=== PATIENT | female | born 1945 | race Caucasian/White ===

== ENCOUNTER 2017-01-05 07:21 | Day surgery (SDC) | payer MEDICARE, OTHER ==
[~2017-01-05] VITALS: Ht 162.6 cm; Wt 88.5 kg
--- NOTE | ~2017-01-05 | EGD ---
EGD REPORT [facility] [address] [address] NAME: ROSE MARIE DOWNS : [birth year] STATUS : REG [facility] PAT#: [id number] AGE: 71 ADM/REG DATE : 01/05/17 MR#: [id number] REPORT SERV DATE: 01/05/17 DICTATED BY: CIERRA TALBERT III DATE: 01/05/17 REPORT STATUS : Draft TRANSCRIBED BY: [facility] DATE: 01/05/17 Endoscopy Center Patient Name: Rose Marie Downs Date of : 1945 Attending MD: CIERRA TALBERT III, MD Procedure Date No Time: 01/05/2017 Procedure: Upper GI endoscopy Indications: Dysphagia, Heartburn Referring MD: JOHN ANTONY MD Medicines: Propofol per Anesthesia Complications: No immediate complications. Procedure: After obtaining informed consent, the endoscope was passed under direct vision. Throughout the procedure, the patient's blood pressure, pulse, and oxygen saturations were monitored continuously. The GIF H190 [id number] was introduced through the mouth, and advanced to the third part of duodenum. The upper GI endoscopy was accomplished with ease. The patient tolerated the procedure well. Findings: Localized mild erythema was found at the gastroesophageal junction. Biopsies were taken with a cold forceps for histology. A mild Schatzki ring (acquired) was found at the gastroesophageal junction. A guidewire was placed and the scope was withdrawn. Dilation was performed with a Savary dilator with no resistance at 54 Fr. A small hiatus hernia was present. The examined duodenum was normal. Diffuse mildly erythematous mucosa without bleeding was found in the entire examined stomach. Biopsies were taken with a cold forceps for histology. Impression: - Erythema at the gastroesophageal junction. Biopsied. - Mild Schatzki ring. Dilated. - Hiatus hernia. - Normal examined duodenum. - Erythematous mucosa in the stomach. Biopsied. Recommendation: - Patient has a contact number available for emergencies. The signs and symptoms of potential delayed complications were discussed with the patient. Return to normal activities tomorrow. Written discharge instructions were provided to the patient. - Discharge patient to home. - Return to previous diet. EGD REPORT [address] [address] NAME: ROSE MARIE DOWNS : [birth year] STATUS : REG [facility] PAT#: [id number] AGE: 71 ADM/REG DATE : 01/05/17 MR#: [id number] REPORT SERV DATE: 01/05/17 DICTATED BY: CIERRA TALBERT III DATE: 01/05/17 REPORT STATUS : Draft TRANSCRIBED BY: [facility] DATE: 01/05/17 - Follow an antireflux regimen. - Continue present medications. - Await pathology results. Procedure Code(s): --- Professional --- 91228, Esophagogastroduodenoscopy, flexible, transoral; with insertion of guide wire followed by passage of dilator(s) through esophagus over guide wire 17763, Esophagogastroduodenoscopy, flexible, transoral; with biopsy, single or multiple Diagnosis Code(s): --- Professional --- K22.9, Disease of esophagus, unspecified K22.2, Esophageal obstruction K44.9, Diaphragmatic hernia without obstruction or gangrene K31.9, Disease of stomach and duodenum, unspecified R13.10, Dysphagia, unspecified R12, Heartburn CPT copyright 2013 [employer]. All rights reserved. The codes documented in this report are preliminary and upon cabinet abrasive sandblaster review may be revised to meet current compliance requirements. CIERRA TALBERT III, MD 01/05/2017 9:25 AM This report has been signed electronically. Number of Addenda: 0 Note Initiated On: 01/05/2017 9:15 AM Scope Withdrawal Time 0 hours 0 minutes 0 seconds [id number] [id number]
--- NOTE | ~2017-01-05 | EGD ---
EGD REPORT [facility] [address] [address] NAME: ROSE MARIE DOWNS : [birth year] STATUS : REG [facility] PAT#: [id number] AGE: 71 ADM/REG DATE : 01/05/17 MR#: [id number] REPORT SERV DATE: 01/05/17 DICTATED BY: CIERRA TALBERT III DATE: 01/05/17 REPORT STATUS : Draft TRANSCRIBED BY: [facility] DATE: 01/05/17 Endoscopy Center Patient Name: Rose Marie Downs Date of : 1945 Attending MD: CIERRA TALBERT III, MD Procedure Date No Time: 01/05/2017 Procedure: Colonoscopy Indications: Screening for colorectal malignant neoplasm Referring MD: JOHN ANTONY MD Medicines: Propofol per Anesthesia Complications: No immediate complications. Procedure: After I obtained informed consent, the scope was passed under direct vision. Throughout the procedure, the patient's blood pressure, pulse, and oxygen saturations were monitored continuously. The PCF [id number] was introduced through the anus and advanced to the cecum, identified by appendiceal orifice and ileocecal valve. The colonoscopy was performed with ease. The patient tolerated the procedure well. The quality of the bowel preparation was good. Findings: Multiple small-mouthed diverticula were found in the sigmoid colon. External and internal hemorrhoids were found during retroflexion. Two sessile polyps were found in the transverse colon. The polyps were 6 to 8 mm in size. These polyps were removed with a cold snare. Resection and retrieval were complete. Impression: - Diverticulosis in the sigmoid colon. - External and internal hemorrhoids. - Two 6 to 8 mm polyps in the transverse colon. Resected and retrieved. Recommendation: - Patient has a contact number available for emergencies. The signs and symptoms of potential delayed complications were discussed with the patient. Return to normal activities tomorrow. Written discharge instructions were provided to the patient. - Discharge patient to home. - High fiber diet indefinitely. - Continue present medications. - Await pathology results. - Repeat colonoscopy after studies are complete for surveillance based on pathology results. EGD REPORT [address] [address] NAME: ROSE MARIE DOWNS : [birth year] STATUS : REG [facility] [place] [facility] PAT#: [id number] AGE: 71 ADM/REG DATE : 01/05/17 MR#: [id number] REPORT SERV DATE: 01/05/17 DICTATED BY: CIERRA TALBERT III DATE: 01/05/17 REPORT STATUS : Draft TRANSCRIBED BY: [employer] DATE: 01/05/17 Procedure Code(s): --- Professional --- 52904, Colonoscopy, flexible, proximal to splenic flexure; with removal of tumor(s), polyp(s), or other lesion(s) by snare technique Diagnosis Code(s): --- Professional --- K64.8, Other hemorrhoids K57.30, Diverticulosis of large intestine without perforation or abscess without bleeding D12.3, Benign neoplasm of transverse colon Z12.11, Encounter for screening for malignant neoplasm of colon CPT copyright 2013 [employer]. All rights reserved. The codes documented in this report are preliminary and upon cash management officer review may be revised to meet current compliance requirements. CIERRA TALBERT III, MD 01/05/2017 9:43 AM This report has been signed electronically. Number of Addenda: 0 Note Initiated On: 01/05/2017 9:07 AM Scope Withdrawal Time 0 hours 10 minutes 12 seconds [id number] [address]
[~2017-01-05 07:21] MED LIST: ALPHA LIPOIC50 M1 PO; ASAB PO; COZAAR100 MG PO; GLUCPH PO; GLUCXL5 PO; KRILL OIL; LANTUS SC; LIPITOR20 PO; MELATONIN5 M1 PO; METAMUCIL CAN7 OZ PO; NORV5 PO; NOVOLOG SC; PRILO PO; PRIM50B PO; REBIF SC; TOPROL XL200 MG PO; TOUJEO SQ; VITAMIN D31000 UNIT PO; VIVELLE SY0.1 MG/24 TOP; WELLSR150 PO; ZYRTEC ALLGY10 MG PO
== END 2017-01-05 23:59 | disposition home or self-care (01) ==
LOC: DMU 07:21
PROVIDERS: Internal Medicine Gastroenterology
PROC: 0DBL8ZZ Excision of Transverse Colon, Via Natural or Artificial Opening Endoscopic (ICD-10-PCS; 2017-01-05)
PROC: 0D748ZZ Dilation of Esophagogastric Junction, Via Natural or Artificial Opening Endoscopic (ICD-10-PCS; principal; 2017-01-05 09:00)
PROC: 0DB48ZX Excision of Esophagogastric Junction, Via Natural or Artificial Opening Endoscopic, Diagnostic (ICD-10-PCS; 2017-01-05 09:00)
PROC: 0DB68ZX Excision of Stomach, Via Natural or Artificial Opening Endoscopic, Diagnostic (ICD-10-PCS; 2017-01-05 09:00)
DX: Z12.11 Encounter for screening for malignant neoplasm of colon (principal); D12.3 Benign neoplasm of transverse colon; K22.2 Esophageal obstruction; K44.9 Diaphragmatic hernia without obstruction or gangrene; K57.30 Diverticulosis of large intestine without perforation or abscess without bleeding; K64.4 Residual hemorrhoidal skin tags; K64.8 Other hemorrhoids; K21.9 Gastro-esophageal reflux disease without esophagitis; I10 Essential (primary) hypertension; E11.9 Type 2 diabetes mellitus without complications; E78.00 Pure hypercholesterolemia, unspecified; G35 Multiple sclerosis; L30.9 Dermatitis, unspecified; J45.909 Unspecified asthma, uncomplicated; G47.33 Obstructive sleep apnea (adult) (pediatric); Z99.89 Dependence on other enabling machines and devices; Z88.5 Allergy status to narcotic agent; Z88.8 Allergy status to other drugs, medicaments and biological substances; Z96.1 Presence of intraocular lens; Z98.41 Cataract extraction status, right eye; Z98.42 Cataract extraction status, left eye; Z90.49 Acquired absence of other specified parts of digestive tract; Z90.710 Acquired absence of both cervix and uterus; Z98.51 Tubal ligation status; Z79.4 Long term (current) use of insulin; Z79.84 Long term (current) use of oral hypoglycemic drugs; Z79.82 Long term (current) use of aspirin; Z79.818 Long term (current) use of other agents affecting estrogen receptors and estrogen levels; Z79.899 Other long term (current) drug therapy; Z98.890 Other specified postprocedural states
CPT/HCPCS: 82962; 88305; J2405